=== PATIENT | male | born 1965 | race Caucasian/White ===

== ENCOUNTER 2016-12-03 09:53 | Day surgery (SDC) | payer MEDICARE ==
[2016-12-02 08:24] VITALS: BMI 19.5
[~2016-12-03 09:53] MED LIST: LACTATED RINGERS 1,000 ML IV SCH
[2016-12-03] MEDS ORDERED: LIDOCAINE 1% 20 ML VIAL (10MG/ML) FOR IV START INTRADERMA ONE (10:29)
[2016-12-03 10:43] VITALS: RESP 16; TEMP 97.5
[2016-12-03] MEDS ORDERED: LIDOCAINE 1% INJ 10MG/ML (20 ML MDV) ONE (11:26)
[2016-12-03] MEDS ORDERED: PROPOFOL 10 MG/ML 20 ML VIAL IV ONE (11:26)
--- NOTE | 2016-12-03 11:42 | P.PCN ---
Date of Procedure: 12/03/16 Preoperative Diagnosis: Postoperative Diagnosis: Procedure(s) Performed: BRIEF HISTORY: Patient is a 51-year-old pleasant male, scheduled for an elective colonoscopy as a part of evaluation of lower abdominal pain and change in bowel habits for the last several months duration. PROCEDURE PERFORMED: Colonoscopy. PREOPERATIVE DIAGNOSIS: Lower abdominal pain and change in bowel habits. IV sedation per Anesthesia. PROCEDURE: After informed consent was obtained, the patient, was brought into the endoscopy unit. IV sedation was administered by Anesthesia under continuous monitoring. Digital rectal examination was normal. Initially the Olympus CF- 160 flexible video colonoscope was then inserted in the rectum, gradually advanced into the cecum without any difficulty. Careful examination was performed as the scope was gradually being withdrawn. Ileocecal valve and the appendiceal orifice were visualized and appeared normal. Prep was fair. Mucosa of the cecum, ascending colon, transverse colon, descending colon, sigmoid colon , and rectum appeared normal. Retroflexion was performed in the rectum and small internal hemorrhoids were seen. Also there was some mild rectal prolapse identified. The patient tolerated the procedure well. IMPRESSION: Normal-appearing colon from rectum to cecum with no evidence of colorectal neoplasia Small internal hemorrhoids. RECOMMENDATIONS: Findings of this examination were discussed with the patient as well as his family. He was advised to continue with fiber supplements, high- fiber diet and osmotic laxatives as needed. He can have a repeat colonoscopy in 10 years. Implants: Indications for Procedure: Operative Findings: Description of Procedure:
[2016-12-03 11:50] VITALS: PULSE 64
[2016-12-03 12:08] VITALS: BP 125/91
== END 2016-12-03 12:27 | disposition home or self-care (01) ==
LOC: ORWHC2ENDO 09:53
PROVIDERS: ATTEND Internal Medicine Gastroenterology
DX: K64.8 Other hemorrhoids (principal); K62.3 Rectal prolapse; R10.30 Lower abdominal pain, unspecified; R19.4 Change in bowel habit; N42.9 Disorder of prostate, unspecified; F41.9 Anxiety disorder, unspecified; F32.9 Major depressive disorder, single episode, unspecified; Z98.1 Arthrodesis status; K59.00 Constipation, unspecified; R19.7 Diarrhea, unspecified; F17.200 Nicotine dependence, unspecified, uncomplicated; Z79.891 Long term (current) use of opiate analgesic; Z79.899 Other long term (current) drug therapy; Z88.1 Allergy status to other antibiotic agents; Z88.5 Allergy status to narcotic agent
CPT/HCPCS: 45378; J2001; J2704

== ENCOUNTER 2017-02-20 11:24 | Emergency (ER) | payer MEDICARE ==
[2017-02-20 11:33] VITALS: BP 104/76; PULSE 61; RESP 18; TEMP 97.4
[2017-02-20] MEDS ORDERED: DIPH,PERTUS(ACELL)TETVAC-LF 0.5 ML VIAL IM ONE (11:50)
[2017-02-20] MEDS ORDERED: HYDROcodone/APAP 5-325MG 1 EACH TAB PO STA (12:25)
--- NOTE | 2017-02-20 12:33 | ED ---
Wound/Laceration HPI - General Chief Complaint: Wound/Laceration Stated Complaint: laceration rt arm Time Seen by Provider: 02/20/17 11:46 Source: patient Mode of arrival: ambulatory Limitations: no limitations - History of Present Illness Initial Comments: Patient is a 51-year-old male presenting to the emergency department with chief complaint of laceration to his right forearm. Patient states he tripped over his rug about 5 AM this morning and scraped his arm against a treadmill. Time: 05:00 Extremity Location: Right: Forearm Place: home Patient Tetanus UTD: No Context: accidental Associated Symptoms: pain (Patient currently rates left forearm pain 6 out of 10 described as throbbing.) Treatments Prior to Arrival: other (Manual pressure and dressing) - Related Data Home Medications Medication Instructions Recorded Confirmed Albuterol Sulfate [Proair Hfa] 2 puff INHALATION TID PRN 12/02/16 12/03/16 Dicyclomine [Bentyl] 10 mg PO BID 12/02/16 12/03/16 Hydrocodone/Acetaminophen [[place] 1 tab PO QID PRN 12/02/16 12/03/16 10-325] Mirtazapine [Remeron] 30 mg PO HS 12/02/16 12/03/16 Propranolol [Inderal] 20 mg PO BID 12/02/16 12/03/16 clonazePAM [KlonoPIN] 1 mg PO TID 12/02/16 12/03/16 Omeprazole [PriLOSEC] 20 mg PO AC-BRKFST 12/03/16 12/03/16 Sucralfate [Carafate] 1 gm PO ACHS 12/03/16 12/03/16 Allergies Allergy/AdvReac Type Severity Reaction Status Date / Time cephalexin [From Keflex] Allergy Abdominal Verified 02/20/17 11:33 Pain codeine Allergy constipatio Verified 02/20/17 11:33 n tramadol Allergy Abdominal Verified 02/20/17 11:33 Pain Review of Systems ROS Statement: Those systems with pertinent positive or pertinent negative responses have been documented in the HPI. ROS Other: All systems not noted in ROS Statement are negative. Past Medical History Past Medical History: Osteoarthritis (OA), Prostate Disorder Additional Past Medical History / Comment(s): hs migraines, abdominal pain and cramping, constipation/diarrhea, History of Any Multi-Drug Resistant Organisms: None Reported Past Surgical History: Back Surgery, Orthopedic Surgery Additional Past Surgical History / Comment(s): cervical fusion x 3, lumbar fusion x3, amputation rt hand little finger, left foot surgery x 2, vasectomy Past Anesthesia/Blood Transfusion Reactions: No Reported Reaction Past Psychological History: Anxiety, Depression Smoking Status: Current every day smoker Past Alcohol Use History: None Reported Past Drug Use History: None Reported - Past Family History Father Family Medical History: Cancer Additional Family Medical History / Comment(s): prostate General Exam - General Exam Comments Initial Comments: GENERAL: Pt awake and alert, well-appearing, well-nourished, and in no acute distress. HEAD: Atraumatic, normocephalic. EYES: Pupils equal, round, sclera anicteric, conjunctiva are normal. ENT: Moist mucous membranes. NECK:Supple. LUNGS: Breath sounds clear to auscultation bilaterally. No wheezes, rales, or rhonchi. HEART: Heart S1, S2, no S3 or S4. Regular rate and rhythm. No murmurs, rubs or gallops. ABDOMEN: Soft, nontender, nondistended, normoactive bowel sounds. No guarding, no rebound. No masses or organomegaly appreciated. MUSCULOSKELETAL: Normal ROM, no tenderness. Strength 5/5. EXTREMITIES: Palpable peripheral pulses. No edema. NEUROLOGICAL: Pt oriented x 3. Cranial nerves II through XII grossly intact. Strength and sensation grossly intact. No focal deficits noted. PSYCH: Normal mood, normal affect. SKIN: Warm, dry. 2 cm laceration to dorsal aspect of right forearm. Limitations: no limitations Course Vital Signs 02/20/17 11:31 Temperature 97.4 F L Pulse Rate 61 Respiratory 18 Rate Blood Pressure 104/76 O2 Sat by Pulse 100 Oximetry Procedures - Laceration Laceration #1 Consent Obtained: verbal consent Indication: laceration Site: upper extremity (Dorsal aspect of right forearm) Size (cm): 2 Description: linear Depth: simple, single layer Anesthetic Used: lidocaine 1% Anesthesia Technique: local infiltration Amount (mls): 1 Pre-repair: wound explored, irrigated extensively, deep structures intact Type of Sutures: nylon Size of Sutures: 5-0 Number of Sutures: 4 Technique: simple, interrupted Patient Tolerated Procedure: well, no complications Medical Decision Making - Medical Decision Making Laceration to right forearm without complications. Laceration repaired without complications. Patient tolerated procedure well. Patient's tetanus immunization updated. Wound care instructions reviewed with patient. Patient agrees with plan of care. Discharge instructions and return parameters reviewed. Disposition Clinical Impression: Laceration Disposition: HOME SELF-CARE Condition: Good Instructions: Care For Your Stitches (ED), Laceration (ED) Additional Instructions: Please return to the emergency room in 7-10 days to have sutures removed. Please watch for any signs of infection which may include increased pain, swelling, redness, fever or chills. Please return to emergency room for any signs if infection do occur. Please use clean soap and water over the area to prevent scabbing over your stitches. Please leave wound covered for the first 24 hours and then leave wound open to air. Please return to the emergency room for any other concerns. Referrals: Marc Marques MD [Primary Care Provider] - 1-2 days Time of Disposition: 12:33
== END 2017-02-20 12:59 | disposition home or self-care (01) ==
LOC: EC 11:24
DX: S51.811A Laceration without foreign body of right forearm, initial encounter (principal); M19.90 Unspecified osteoarthritis, unspecified site; N42.9 Disorder of prostate, unspecified; F32.9 Major depressive disorder, single episode, unspecified; F41.9 Anxiety disorder, unspecified; F17.200 Nicotine dependence, unspecified, uncomplicated; Z79.899 Other long term (current) drug therapy; Z88.1 Allergy status to other antibiotic agents; Z88.5 Allergy status to narcotic agent; Z88.6 Allergy status to analgesic agent; W01.0XXA Fall on same level from slipping, tripping and stumbling without subsequent striking against object, initial encounter
CPT/HCPCS: 12001; 90471; 90715; 99282